=== PATIENT | female | born 1965 | race Caucasian/White ===

== ENCOUNTER → 2022-02-19 09:56 | Outpatient (CLI) | payer OTHER, SELFPAY ==
--- NOTE | 2022-02-19 10:07 | XR_ITS ---
FINAL REPORT CLINICAL HISTORY: pt had MRI in [place]. report said buldging disc c6,c7 c/o rt neck pain extending down into rt arm FINDINGS: CERVICAL SPINE Six views demonstrate no acute fracture. There is straightening of the cervical spine which may be positional or due to muscle spasm. There is mild degenerative change in the lower cervical spine with disc osteophyte complexes at C5-6 and C6-7. There is no malalignment. IMPRESSION: Degenerative changes as above. Reviewed, Interpreted and Dictated by Zhang Barkley III, MD Transcribed by Maria De Jesus Amaya Authenticated and [facility]
== END ==
PROVIDERS: PCP Internal Medicine; Visit Provider Chiropractor
DX: M13.88 Other specified arthritis, other site
CPT/HCPCS: 72050

== ENCOUNTER 2023-09-02 12:35 | Outpatient (CLI) | payer OTHER, SELFPAY ==
[2023-09-02 13:40] VITALS: PULSE 65; PULSE 78
[2023-09-02] MEDS: ALBUTEROL 0.083% 2.5 MG/3 ML NEB IH (13:40)
[2023-09-03 19:37] LABS: Antinuclear Antibodies, IFA Negative (.)
[2023-09-13 10:28] LABS: Miscellaneous Test SCANNED IMAGE
== END 2023-09-02 23:59 ==
LOC: RT 12:36
PROVIDERS: Visit Provider Chiropractor
DX: R06.02 Shortness of breath (principal); E11.9 Type 2 diabetes mellitus without complications
CPT/HCPCS: 36415; 86038; 94060; 94640

== ENCOUNTER 2023-09-20 09:24 | Outpatient (CLI) | payer OTHER, SELFPAY ==
[2023-09-20 10:29] LABS: Uric Acid 2.8 mg/dl (2.5-6.2)
[2023-09-20 10:44] LABS: Erythrocyte Sedimentation Rate 2 mm/hr (0-30)
[2023-09-21 12:23] LABS: RA Latex Turbid. 19.5 IU/mL (<14.0)
[2023-09-23 13:34] LABS: Sjogren's Anti-SS-A 1.4 AI (0.0-0.9); Sjogren's Anti-SS-B <0.2 AI (0.0-0.9)
[2023-09-24 10:17] LABS: Antinuclear Antibodies, IFA Negative (.)
== END 2023-09-20 23:59 ==
LOC: LAB 09:25
PROVIDERS: Visit Provider Chiropractor
DX: M35.00 Sjogren syndrome, unspecified (principal)
CPT/HCPCS: 36415; 84550; 85651; 86038; 86235; 86431